=== PATIENT | male | born 1980 | race Caucasian/White ===

== ENCOUNTER 2017-02-26 18:32 | Emergency (ER) | payer SELFPAY ==
[~2017-02-26] VITALS: Ht 165.1 cm; Wt 125.5 kg
[2017-02-26 18:57] VITALS: Ht 165.1 cm; Wt 125.5 kg
== END 2017-02-26 22:03 | disposition left against medical advice (07) ==
LOC: FTE 18:32 → E/R 22:03
DX: Z53.21 Procedure and treatment not carried out due to patient leaving prior to being seen by health care provider (principal)

== ENCOUNTER 2017-12-27 23:38 | Emergency (ER) | END 2017-12-28 01:32 | disposition home or self-care (01) ==

== ENCOUNTER 2018-09-19 22:55 | Emergency (ER) | payer BC ==
[~2018-09-19] VITALS: Ht 167.6 cm; Wt 124.0 kg
[~2018-09-19 22:55] MED LIST: AMOX500C2 PO; HYDR-4011 PO; IBUP-1542 PO
[2018-09-19 22:59] VITALS: BP 150/99; PULSE 87; RESP 18; Ht 167.6 cm; Wt 124.0 kg
[2018-09-19] MEDS ORDERED: ALBUTEROL 0.083% (NEB) 2.5 MG/3 ML AMP HHN STA (23:12)
[2018-09-19] MEDS ORDERED: DEXAMETHASONE 10 MG/ML 1 ML INJ IM ONE (23:30)
[2018-09-20] MEDS ORDERED: AZIT250T PO (00:11)
[2018-09-20] MEDS ORDERED: PRED20TA PO (00:11)
[2018-09-20] MEDS ORDERED: ALBU18HF INHALATION (00:11)
--- NOTE | 2018-09-20 00:14 | ERD ---
ER Documentation Chief Complaint Chief Complaint sore throat/cough x 2 days HPI 37-year-old male presents with a 40 history of productive cough and shortness of breath. He has trouble catching his breath and coughing spells and possible wheezing. Denies chest pain, vomiting, abdominal pain or history of asthma. ROS All systems reviewed and are negative except as per history of present illness. Medications Home Meds Active Scripts Prednisone* (Prednisone*) 20 Mg Tab, 40 MG PO DAILY for 4 Days, TAB Start September 21, 2018 Prov:MICKEY ANDRES MD 09/20/18 Azithromycin* (Zithromax*) 250 Mg Tablet, 250 MG PO .ZPACK DIRECTED, #6 TAB TAKE 500 MG (2 TABS) THE FIRST DAY THEN 250 MG (1 TAB) DAYS 2-5 Prov:MICKEY ANDRES MD 09/20/18 Albuterol Sulfate* (Ventolin HFA*) 18 Gm Hfa.aer.ad, 2 PUFF INHALATION Q4H, #1 INHALER Prov:MICKEY ADNRES MD 09/20/18 Hydrocodone/Acetaminophen ([place] 5-325 Tablet) 1 Each Tablet, 1 TAB PO Q6H PRN for SEVERE PAIN LEVEL 7-10, #10 TAB Prov:CRYSTAL TROY NP 12/28/17 Amoxicillin* (Amoxicillin*) 500 Mg Cap, 500 MG PO TID for 10 Days, CAP Prov:CRYSTAL TROY NP 12/28/17 Ibuprofen* (Motrin*) 600 Mg Tab, 600 MG PO Q6H PRN for PAIN AND OR ELEVATED TEMP, #30 TAB Prov:CRYSTAL TROY NP 12/28/17 Allergies Allergies: Coded Allergies: No Known Allergies (Verified Allergy, Mild, 12/22/11) PMhx/Soc Medical and Surgical Hx: pt denies Medical Hx, pt denies Surgical Hx History of Surgery: No Anesthesia Reaction: No Hx Neurological Disorder: No Hx Respiratory Disorders: No Hx Cardiac Disorders: No Hx Psychiatric Problems: No Hx Miscellaneous Medical Probl: No Hx Alcohol Use: No Hx Substance Use: No Hx Tobacco Use: No FmHx Family History: No diabetes, No coronary disease, No other Physical Exam Vitals Vital Signs Date Temp Pulse Resp B/P (MAP) Pulse Ox O2 O2 Flow FiO2 Time Delivery Rate 09/19/18 76 18 98 21 23:30 09/19/18 98.0 87 18 150/99 98 22:59 (116) Physical Exam Const: No acute distress Head: Atraumatic Eyes: Normal Conjunctiva ENT: Normal External Ears, Nose and Mouth. TMs and oropharynx normal. Neck: Full range of motion. No meningismus. Resp: Clear to auscultation bilaterally. Wheezing and rhonchi bilaterally without rales or retractions appreciated. Cardio: Regular rate and rhythm, no murmurs Abd: Soft, non tender, non distended. Normal bowel sounds Skin: No petechiae or rashes Back: No midline or flank tenderness Ext: No cyanosis, or edema Neur: Awake and alert Psych: Normal Mood and Affect Results 24 hrs Current Medications Medications Dose Sig/Tamara Start Time Status Last (Trade) Ordered Route PRN Stop Time Admin Dose Reason Admin 10 mg ONCE ONCE 09/19/18 DC 09/19/18 Dexamethasone IM 23:30 23:26 (Decadron) 09/19/18 23:31 Albuterol 5 mg ONCE STAT 09/19/18 DC 09/19/18 (Proventil HHN 23:12 23:29 0.083% (Neb)) 09/19/18 23:13 Procedures/MDM Patient given albuterol treatment x1 Decadron 10 mg IM. Patient had clear lungs on serial exam. Patient presents with productive cough and wheezing, likely bronchitis with wheezing. There is no signs of pneumonia, hypoxemia, respiratory distress. Patient will be treated empirically with a short course of prednisone starting in 2 days, Zithromax, Ventolin, primary care follow-up and return precautions. The patient was stable with no new complaints during the ER course. Clinically, there is no current evidence to suggest meningitis, sepsis, acute abdomen, pneumonia, stroke, acute coronary syndrome, pulmonary embolism, aortic dissection or any other emergent condition appearing to require further evaluation or hospitalization. Patient counseled regarding my diagnostic impression and care plan. Prior to discharge all questions answered. Pt agrees with treatment plan and understands strict return precautions. Pt is instructed to follow up with primary care provider within 24-48 hours. Precautionary instructions provided including instructions to return to the ER if not improving or for any worsening or changing symptoms or concerns. Disclaimer: Inadvertent spelling and grammatical errors are likely due to EHR/dictation software use and do not reflect on the overall quality of patient care. Also, please note that the electronic time recorded on this note does not necessarily reflect the actual time of the patient encounter. Departure Diagnosis: Primary Impression: Wheeze Additional Impression: URI (upper respiratory infection) URI type: unspecified URI Qualified Codes: J06.9 - Acute upper respiratory infection, unspecified Condition: Stable Patient Instructions: Bronchitis With Wheezing (Adult) Additional Instructions: Recheck for new or worsening symptoms with primary care doctor. MICKEY ANDRES MD Sep 20, 2018 00:14
== END 2018-09-20 00:17 | disposition home or self-care (01) ==
LOC: FTE 22:55
DX: J06.9 Acute upper respiratory infection, unspecified (principal)
CPT/HCPCS: 94664; 96372; 99284; J1100; Z7610

== ENCOUNTER 2018-10-09 19:27 | Emergency (ER) | payer SELFPAY ==
[~2018-10-09] VITALS: Wt 124.0 kg
[~2018-10-09 19:27] MED LIST changes: +ALBU18HF INHALATION; +AZIT250T PO; +PRED20TA PO
[2018-10-09 19:51] VITALS: RESP 20
[2018-10-09] MEDS ORDERED: SULF1TAB31 PO (20:33)
[2018-10-09] MEDS ORDERED: AMOX500C2 PO (20:34)
--- NOTE | 2018-10-09 20:37 | ERD ---
ER Documentation Chief Complaint Chief Complaint L EYE SWELLING X THIS MORNING HPI Patient is a 37-year-old male who presents the ER for concerns of left eye redness and swelling that started this morning. Patient states last night he noticed some redness to that eyelid however it was much smaller than it was this morning. He states the redness and swelling has spread. Patient does have some mild yellow drainage.. Patient denies any blurry vision. Patient denies any fevers, chills. Patient denies any contact lens use. Patient denies any glasses use. ROS All systems reviewed and are negative except as per history of present illness. Medications Home Meds Active Scripts Amoxicillin* (Amoxicillin*) 500 Mg Cap, 500 MG PO BID for 7 Days, CAP Prov:MAITE LEE PA-C 10/09/18 Sulfamethoxazole/Trimethoprim* (Bactrim Ds* Tablet) 1 Each Tablet, 1 TAB PO BID, #14 TAB Prov:MAITE LEE PA-C 10/09/18 Prednisone* (Prednisone*) 20 Mg Tab, 40 MG PO DAILY for 4 Days, TAB Start September 21, 2018 Prov:MICKEY ANDRES MD 09/20/18 Azithromycin* (Zithromax*) 250 Mg Tablet, 250 MG PO .ZPACK DIRECTED, #6 TAB TAKE 500 MG (2 TABS) THE FIRST DAY THEN 250 MG (1 TAB) DAYS 2-5 Prov:MICKEY ANDRES MD 09/20/18 Albuterol Sulfate* (Ventolin HFA*) 18 Gm Hfa.aer.ad, 2 PUFF INHALATION Q4H, #1 INHALER Prov:MICKEY ANDRES MD 09/20/18 Hydrocodone/Acetaminophen ([place] 5-325 Tablet) 1 Each Tablet, 1 TAB PO Q6H PRN for SEVERE PAIN LEVEL 7-10, #10 TAB Prov:CRYSTAL TROY NP 12/28/17 Amoxicillin* (Amoxicillin*) 500 Mg Cap, 500 MG PO TID for 10 Days, CAP Prov:CRYSTAL TROY NP 12/28/17 Ibuprofen* (Motrin*) 600 Mg Tab, 600 MG PO Q6H PRN for PAIN AND OR ELEVATED TEMP, #30 TAB Prov:CRYSTAL TROY NP 12/28/17 Allergies Allergies: Coded Allergies: No Known Allergies (Verified Allergy, Mild, 12/22/11) PMhx/Soc History of Surgery: No Anesthesia Reaction: No Hx Neurological Disorder: No Hx Respiratory Disorders: No Hx Cardiac Disorders: No Hx Psychiatric Problems: No Hx Miscellaneous Medical Probl: No Hx Alcohol Use: No Hx Substance Use: No Hx Tobacco Use: No Smoking Status: Never smoker FmHx Family History: No diabetes Physical Exam Vitals Vital Signs Date Temp Pulse Resp B/P (MAP) Pulse Ox O2 O2 Flow FiO2 Time Delivery Rate 10/09/18 99.1 77 20 143/69 19:51 (93) Physical Exam GENERAL: Well-developed, well-nourished male. Appears in no acute distress. HEAD: Normocephalic, atraumatic. EYES: Pupils are equally reactive bilaterally. EOMs grossly intact. No conjunctival erythema noted bilaterally. Swelling and redness localized to the left upper eyelid. No redness or swelling to the lower eyelid. Eyelid is tender to touch. No warmth. Patient able to open eye without difficulty. No pain with EOMs. No proptosis. ENT: Moist mucous membranes. No uvula deviation. No kissing tonsils. NECK: Supple. No meningismus. Normal range of motion of the neck. LUNG: No respiratory distress. EXTREMITIES: Equal pulses bilaterally. No peripheral clubbing, cyanosis or edema. No unilateral leg swelling. NEUROLOGIC: Alert and oriented. Moving all four extremities without any difficulty. Normal speech. Steady gait. SKIN: Normal color. Warm and dry. No rashes or lesions. Procedures/MDM MEDICAL DECISION MAKING: This is a 37-year-old male who presents the ER for concerns of left eye redness and swelling which started this morning. Patient states initially there is only a small area of redness however this morning upon waking up he noticed that the redness and swelling has increased. Vital signs were reviewed. Patient was afebrile. On exam, patient had redness and swelling localized to the upper eyelid. Patient is able to open his eye. Patient has no pain with EOMs. Patient has no proptosis. Patient will be treated with amoxicillin and Bactrim for concerns of periorbital cellulitis. Patient was advised to monitor symptoms closely if he has any new or worsening redness or swelling he should return to the ER for reevaluation. Patient advised unable to rule out orbital cellulitis without CT imaging. At this time low suspicion for orbital cellulitis however patient should monitor symptoms closely. Low suspicion for corneal abrasion, corneal ulcer, retained foreign body or dacryocystitis. Patient was nontoxic, non-opening prior to discharge. PRESCRIPTIONS: Amoxicillin, Bactrim DISCHARGE: At this time, patient is stable for discharge and outpatient management. Supportive measures were discussed with patient including warm/cool compresses. Patient advised not to wear contact lenses or eye makeup. I have instructed the patient to follow-up with his/her primary care physician in 1-2 days. I have discussed with the patient the possibility of needing to see an plastic eye technician for further workup if symptoms persist. I have instructed the patient to promptly return to the ER for any new or worsening symptoms including increased pain, fever, swelling, redness, warmth, nausea, vomiting, . The patient and/or family expressed understanding of and agreement with this plan. All questions were answered. Home care instructions were provided. Disclaimer: Inadvertent spelling and grammatical errors are likely due to EHR/dictation software use and do not reflect on the overall quality of patient care. Also, please note that the electronic time recorded on this note does not necessarily reflect the actual time of the patient encounter. Departure Diagnosis: Primary Impression: Periorbital cellulitis Laterality: left Qualified Codes: L03.213 - Periorbital cellulitis Condition: Fair Patient Instructions: Blepharitis, Valerie-Orbital Cellulitis Referrals: [facility] YOU HAVE RECEIVED A MEDICAL SCREENING EXAM AND THE RESULTS INDICATE THAT YOU DO NOT HAVE A CONDITION THAT REQUIRES URGENT TREATMENT IN THE EMERGENCY DEPARTMENT. FURTHER EVALUATION AND TREATMENT OF YOUR CONDITION CAN WAIT UNTIL YOU ARE SEEN IN YOUR DOCTORS OFFICE WITHIN THE NEXT 1-2 DAYS. IT IS YOUR RESPONSIBILITY TO MAKE AN APPOINTMENT FOR FOLOW-UP CARE. IF YOU HAVE A PRIMARY DOCTOR --you should call your primary doctor and schedule an appointment IF YOU DO NOT HAVE A PRIMARY DOCTOR YOU CAN CALL OUR PHYSICIAN REFERRAL HOTLINE AT IF YOU CAN NOT AFFORD TO SEE A PHYSICIAN YOU CAN CHOSE FROM THE FOLLOWING [facility] [address] [facility]. [facility] [address] [facility]. [facility] [address] [facility]. [facility] [address] [facility]. [facility] [address] [facility]. [facility] [address] [facility]. [facility] YOU HAVE RECEIVED A MEDICAL SCREENING EXAM AND THE RESULTS INDICATE THAT YOU DO NOT HAVE A CONDITION THAT REQUIRES URGENT TREATMENT IN THE EMERGENCY DEPARTMENT. FURTHER EVALUATION AND TREATMENT OF YOUR CONDITION CAN WAIT UNTIL YOU ARE SEEN IN YOUR DOCTORS OFFICE WITHIN THE NEXT 1-2 DAYS. IT IS YOUR RESPONSIBILITY TO MAKE AN APPOINTMENT FOR FOLOW-UP CARE. IF YOU HAVE A PRIMARY DOCTOR --you should call your primary doctor and schedule and appointment IF YOU DO NOT HAVE A PRIMARY DOCTOR YOU CAN CALL OUR PHYSICIAN REFERRAL HOTLINE AT . IF YOU CAN NOT AFFORD TO SEE A PHYSICIAN YOU CAN CHOSE FROM THE FOLLOWING [facility] INSTITUTIONS: [facility] [address] [place] [address] [facility] [address] [place] [address] [facility] + [facility] [address] [place] [address] Additional Instructions: Warm compresses/ cold compresses advised. Monitor symptoms closely. If you have any worsening redness, swelling, pain return to the ER. Unable to rule out orbital cellulitis without CT imaging. Call your primary care doctor TOMORROW for an appointment during the next 1-2 days.See the doctor sooner or return here if your condition worsens before your appointment time. MAITE LEE PA-C October 09, 2018 20:37
[2018-10-09 20:56] VITALS: BP 140/85; PULSE 77
== END 2018-10-09 20:56 | disposition home or self-care (01) ==
LOC: FTE 19:27
DX: L03.213 Periorbital cellulitis (principal)
CPT/HCPCS: 99283